=== PATIENT | male | born 1980 | race Caucasian/White ===

== ENCOUNTER 2018-06-26 12:45 | Emergency (ER) | payer MEDICAID ==
[~2018-06-26] VITALS: Ht 647.4 cm; Wt 70.5 kg
[2018-06-26] MEDS ORDERED: ALBU8.5H8 IH (13:33)
[2018-06-26 13:47] VITALS: BP 137/99
== END 2018-06-26 13:48 | disposition home or self-care (01) ==
LOC: ER 12:46
DX: R09.1 Pleurisy (principal); J40 Bronchitis, not specified as acute or chronic; R07.9 Chest pain, unspecified; Z79.899 Other long term (current) drug therapy
CPT/HCPCS: 71045; 93005; 99284

== ENCOUNTER 2020-06-10 01:27 | Emergency (ER) | payer MEDICAID ==
[~2020-06-10] VITALS: Ht 182.9 cm; Wt 72.0 kg
[~2020-06-10 01:27] MED LIST: ALBU8.5H8 IH
[2020-06-10] MEDS ORDERED: morphine 4 MG/ML inj SYRINge IV PRN (02:00)
[2020-06-10] MEDS ORDERED: normal saline 1000ML IV soln IVB ONE (02:00)
[2020-06-10] MEDS ORDERED: ondansetron/PF 4mg/2ml inj IV ONE (02:00)
[2020-06-10] MEDS ORDERED: LORazepam 2 mg/ml vial IV ONE (02:00)
[2020-06-10 02:24] LABS: BASOPHILS # (AUTO) 0.1 X10'3 (0-0.2); BASOPHILS % (AUTO) 0.4 % (0-1); EOSINOPHILS # (AUTO) 0.1 X10'3 (0-0.9); EOSINOPHILS % (AUTO) 0.9 % (0-6); HEMATOCRIT 40.9 % (42.0-52.0); HEMOGLOBIN 14.1 g/dl (14.0-17.9); LYMPHOCYTES # (AUTO) 1.2 X10'3 (1.1-4.8); LYMPHOCYTES % (AUTO) 7.7 % (21-51); MEAN CORPUSCULAR HEMOGLOBIN 34.2 PG (27.0-31.0); MEAN CORPUSCULAR HGB CONC 34.5 g/dL (33.0-36.5); MEAN CORPUSCULAR VOLUME 99.2 FL (78-98); MEAN PLATELET VOLUME 7.3 FL (7.4-10.4); MONOCYTES # (AUTO) 1.3 X10'3 (0-0.9); MONOCYTES % (AUTO) 8.5 % (2-12); NEUTROPHILS # (AUTO) 12.7 X10'3 (1.8-7.7); NEUTROPHILS % (AUTO) 82.5 % (42-75); PLATELET COUNT 221 X10'3 (140-440); RED BLOOD COUNT 4.12 X10'6 (4.70-6.10); RED CELL DISTRIBUTION WIDTH 12.6 % (11.5-14.5); WHITE BLOOD COUNT 15.4 X10'3 (4.5-11.0)
[2020-06-10 02:41] LABS: ALANINE AMINOTRANSFERASE 52 U/L (12-78); ALBUMIN 3.4 G/DL (3.4-5.0); ALBUMIN/GLOBULIN RATIO 0.9 (1.1-1.5); ALKALINE PHOSPHATASE 104 IU/L (46-116); ANION GAP 8 (8-16); ASPARTATE AMINO TRANSFERASE 43 U/L (10-37); BILIRUBIN,TOTAL 0.3 MG/DL (0.1-1.0); BLOOD UREA NITROGEN 8 MG/DL (7-18); BUN/CREATININE RATIO 8.1 (5.4-32.0); CALCIUM 8.5 MG/DL (8.5-10.1); CHLORIDE 101 MMOL/L (99-107); CREATININE 0.99 MG/DL (0.60-1.10); GLUCOSE 123 MG/DL (70-104); LIPASE 281 U/L (73-393); POTASSIUM 3.2 MMOL/L (3.5-5.1); SODIUM 138 MMOL/L (135-145); TOTAL CARBON DIOXIDE 28.8 MMOL/L (24-32); TOTAL PROTEIN 7.2 G/DL (6.4-8.2); eGFR 85 ML/MIN
[2020-06-10] MEDS ORDERED: potassium Cl 20 mEq SR tablet PO STA (02:58)
[2020-06-10 03:07] VITALS: BP 147/90
== END 2020-06-10 03:38 | disposition home or self-care (01) ==
LOC: ER 01:28
DX: R59.0 Localized enlarged lymph nodes (principal); E87.6 Hypokalemia; R10.31 Right lower quadrant pain; Z72.89 Other problems related to lifestyle; Z88.5 Allergy status to narcotic agent
CPT/HCPCS: 36415; 74176; 80053; 83690; 85025; 96374; 96375; 99284; J2060; J2270; J2405; J7030

== ENCOUNTER 2020-06-13 10:38 | Emergency (ER) | payer MEDICAID ==
[~2020-06-13] VITALS: Ht 180.3 cm; Wt 72.7 kg
[2020-06-13 11:15] VITALS: BP 137/89
[2020-06-13] MEDS ORDERED: DOXYCYCLINE 100MG CAPSULE PO STA (11:48)
[2020-06-13] MEDS ORDERED: ketorolac trometh inj. 60 MG/2 ML VIAL IM ONE (11:50)
[2020-06-13] MEDS ORDERED: ondansetron 4mg rapidly disintigrating tab PO ONE (11:50)
[2020-06-13] MEDS ORDERED: TETanus/Pertussis (Acell)/Diphther VAC/PF (Tdap-Adult) 0.5ml syringe IMVAC ONE (11:50)
[2020-06-13] MEDS ORDERED: ceFAZolin 1gm IM kit IM ONE (11:50)
[2020-06-13] MEDS ORDERED: ONDA8TAB6 PO (11:52)
[2020-06-13] MEDS ORDERED: DOXY100C76 PO (11:52)
[2020-06-13] MEDS ORDERED: CEPH250T PO (11:52)
[2020-06-13] MEDS ORDERED: ACYC-202 PO (13:10)
== END 2020-06-13 13:27 | disposition home or self-care (01) ==
LOC: ER 10:38
DX: L03.314 Cellulitis of groin (principal); Z88.5 Allergy status to narcotic agent; Z79.2 Long term (current) use of antibiotics; Z79.899 Other long term (current) drug therapy
CPT/HCPCS: 90471; 90715; 96372; 99284; J0690; J1885

== ENCOUNTER 2020-06-15 14:11 | Inpatient (IN) | payer MEDICAID ==
[~2020-06-15] VITALS: Ht 185.4 cm; Wt 50.0 kg
[~2020-06-15 14:11] MED LIST changes: +ACYC-202 PO; +CEPH250T PO; +DOXY100C76 PO; +ONDA8TAB6 PO
[2020-06-15 15:12] LABS: BASOPHILS # (AUTO) 0.1 X10'3 (0-0.2); BASOPHILS % (AUTO) 0.4 % (0-1); EOSINOPHILS # (AUTO) 0.1 X10'3 (0-0.9); EOSINOPHILS % (AUTO) 0.6 % (0-6); HEMATOCRIT 38.6 % (42.0-52.0); HEMOGLOBIN 13.3 g/dl (14.0-17.9); LYMPHOCYTES # (AUTO) 1.2 X10'3 (1.1-4.8); LYMPHOCYTES % (AUTO) 6.2 % (21-51); MEAN CORPUSCULAR HEMOGLOBIN 33.7 PG (27.0-31.0); MEAN CORPUSCULAR HGB CONC 34.3 g/dL (33.0-36.5); MEAN CORPUSCULAR VOLUME 98.1 FL (78-98); MEAN PLATELET VOLUME 7.8 FL (7.4-10.4); MONOCYTES # (AUTO) 1.5 X10'3 (0-0.9); NEUTROPHILS % (AUTO) 84.8 % (42-75); PLATELET COUNT 407 X10'3 (140-440); RED BLOOD COUNT 3.94 X10'6 (4.70-6.10); RED CELL DISTRIBUTION WIDTH 12.5 % (11.5-14.5); WHITE BLOOD COUNT 18.9 X10'3 (4.5-11.0)
[2020-06-15 15:25] LABS: ALANINE AMINOTRANSFERASE 103 U/L (12-78); ALBUMIN 2.4 G/DL (3.4-5.0); ALBUMIN/GLOBULIN RATIO 0.5 (1.1-1.5); ALKALINE PHOSPHATASE 142 IU/L (46-116); ANION GAP 6 (8-16); ASPARTATE AMINO TRANSFERASE 61 U/L (10-37); BILIRUBIN,TOTAL 0.4 MG/DL (0.1-1.0); BLOOD UREA NITROGEN 12 MG/DL (7-18); CALCIUM 8.9 MG/DL (8.5-10.1); CHLORIDE 99 MMOL/L (99-107); GLUCOSE 109 MG/DL (70-104); MAGNESIUM 2.1 MG/DL (1.5-2.4); POTASSIUM 3.4 MMOL/L (3.5-5.1); SODIUM 136 MMOL/L (135-145); TOTAL CARBON DIOXIDE 31.1 MMOL/L (24-32); TOTAL PROTEIN 7.5 G/DL (6.4-8.2); eGFR 68 ML/MIN
[2020-06-15 15:27] LABS: CLARITY,URINE CLEAR (Clear); COLOR,URINE YELLOW (Yellow); GLUCOSE, URINE NEGATIVE (Neg); KETONES,URINE 15 mg/dl (Neg); LEUKOCYTE ESTERASE ,URINE NEGATIVE (Neg); NITRITES, URINE NEGATIVE (Neg); OCCULT BLOOD,URINE NEGATIVE (Neg); PH,URINE 5.5 (4.8-8.0); PROTEIN,URINE 30 mg/dl (Neg)
[2020-06-15 15:28] LABS: UA COLLECTION TYPE CLN CATCH MIDSTREAM
[2020-06-15] MEDS ORDERED: penicillin G benzathine 1.2 million unit/2ml syringe IM ONE ×2 (15:35)
[2020-06-15 15:37] LABS: BACTERIA,URINE 1+ /HPF (Neg); MUCUS STRANDS MODERATE /LPF (Neg); RBC,URINE 0-2 /HPF (0-2); SQUAMOUS EPITHELIAL CELL,UR FEW /LPF (FEW); WBC,URINE 0-4 /HPF (0-4)
[2020-06-15] MEDS ORDERED: iohexol 300mg/ml 100ml inj. ONE (17:14)
[2020-06-15] MEDS ORDERED: CefTRIAXone/D5W-Rocephin 1gm 50 ML IV ONE (18:05)
[2020-06-15] MEDS ORDERED: DOXYCYCLINE 100MG CAPSULE PO STA (18:05)
[2020-06-15] MEDS ORDERED: vancomycin/NS 1 GM ADD-VANTAGE 250 ML IV ONE (18:10)
[2020-06-15] MEDS ORDERED: ACYC-202 PO (18:30)
[2020-06-15 18:55] LABS: PLATELET ESTIMATE NORMAL; TOTAL CELLS COUNTED 100
[2020-06-15] MEDS ORDERED: HYDROcodone/acetaminophen 5mg/325mg tablet PO PRN (20:45)
[2020-06-15] MEDS ORDERED: mag hydrox/Alum hydrox/simeth 30ml oral suspension PO PRN (20:45)
[2020-06-15] MEDS ORDERED: magnesium 4gm in 100ml NS 100 ML IV PRN (20:45)
[2020-06-15] MEDS ORDERED: potassium Cl 20 mEq SR tablet PO PRN ×2 (20:45)
[2020-06-15] MEDS ORDERED: ipratropium/albuterol 3ml nebule NEB PRN (20:45)
[2020-06-15] MEDS ORDERED: magnesium hydroxide 30ml (MOM) UD suspension PO PRN (20:45)
[2020-06-15] MEDS ORDERED: acetaminophen 325mg tablet PO PRN ×2 (20:45)
[2020-06-15] MEDS ORDERED: potassium CL 10mEq/100ml bag 100 ML IV PRN ×2 (20:45)
[2020-06-15] MEDS ORDERED: magnesium 2GM in 50ml NS 50 ML IV PRN (20:45)
[2020-06-15] MEDS ORDERED: ondansetron/PF 4mg/2ml inj IV PRN (20:45)
[2020-06-15] MEDS ORDERED: VANCOMYCIN 750MG IV in NS 250 ML IV SCH (21:00)
[2020-06-15] MEDS: clindamycin 600mg/D5W 50ml 50 ML IV SCH (21:21)
[2020-06-15] MEDS: HYDROcodone/acetaminophen 10/325mg tab PO PRN (21:21)
--- NOTE | 2020-06-15 22:45 | NUR ---
Received report from Georgi CALDWELL in the ER, I had the opportunity to ask questions.
[2020-06-15 23:00] VITALS: BP 144/96
--- NOTE | 2020-06-15 23:00 | NUR ---
Patient arrived on unit via a gurney and transferred to room by ambulation. He is AOx4, vitals were taken, Heart rate 70, resp 22, 97%, Pain 0, BP 144/96. Two RN skin check was performed and MRSA culture obtained. Pictures of right groin abscess taken in the ER and consultation requested with wound care. Patient is stable in room with no signs of distress.
[2020-06-15] MEDS: normal saline 1000ml 1,000 ML IV SCH (23:45)
[2020-06-16] VITALS (17 sets, daily range): BP systolic 123–150; BP diastolic 80–96
[2020-06-16] MEDS: clindamycin 600mg/D5W 50ml 50 ML IV SCH ×4 (01:33→22:17)
[2020-06-16] MEDS: HYDROcodone/acetaminophen 10/325mg tab PO PRN ×3 (03:38→23:53)
[2020-06-16 05:01] LABS: BASOPHILS # (AUTO) 0.1 X10'3 (0-0.2); BASOPHILS % (AUTO) 0.4 % (0-1); EOSINOPHILS # (AUTO) 0.2 X10'3 (0-0.9); EOSINOPHILS % (AUTO) 1.6 % (0-6); HEMATOCRIT 35.7 % (42.0-52.0); HEMOGLOBIN 12.1 g/dl (14.0-17.9); LYMPHOCYTES # (AUTO) 1.7 X10'3 (1.1-4.8); LYMPHOCYTES % (AUTO) 12.6 % (21-51); MEAN CORPUSCULAR HGB CONC 33.9 g/dL (33.0-36.5); MEAN CORPUSCULAR VOLUME 100.2 FL (78-98); MEAN PLATELET VOLUME 7.7 FL (7.4-10.4); MONOCYTES # (AUTO) 1.5 X10'3 (0-0.9); MONOCYTES % (AUTO) 10.7 % (2-12); NEUTROPHILS # (AUTO) 10.3 X10'3 (1.8-7.7); NEUTROPHILS % (AUTO) 74.7 % (42-75); PLATELET COUNT 371 X10'3 (140-440); RED BLOOD COUNT 3.56 X10'6 (4.70-6.10); RED CELL DISTRIBUTION WIDTH 12.8 % (11.5-14.5); WHITE BLOOD COUNT 13.8 X10'3 (4.5-11.0)
[2020-06-16 05:07] LABS: ALANINE AMINOTRANSFERASE 84 U/L (12-78); ALBUMIN 2.2 G/DL (3.4-5.0); ALBUMIN/GLOBULIN RATIO 0.5 (1.1-1.5); ALKALINE PHOSPHATASE 123 IU/L (46-116); ANION GAP 6 (8-16); ASPARTATE AMINO TRANSFERASE 41 U/L (10-37); BILIRUBIN,TOTAL 0.4 MG/DL (0.1-1.0); BLOOD UREA NITROGEN 7 MG/DL (7-18); BUN/CREATININE RATIO 8.5 (5.4-32.0); CALCIUM 8.6 MG/DL (8.5-10.1); CHLORIDE 102 MMOL/L (99-107); CREATININE 0.82 MG/DL (0.60-1.10); GLUCOSE 90 MG/DL (70-104); POTASSIUM 3.7 MMOL/L (3.5-5.1); SODIUM 136 MMOL/L (135-145); TOTAL CARBON DIOXIDE 28.3 MMOL/L (24-32); TOTAL PROTEIN 6.6 G/DL (6.4-8.2); eGFR > 90 ML/MIN
--- NOTE | 2020-06-16 06:33 | NUR ---
Problems reprioritized. Patient report given, questions answered & plan of care reviewed with Kaye CALDWELL.
--- NOTE | 2020-06-16 07:03 | NUR ---
Patient in room PCU 3024. I have received report from PAULETTE Crisostomo and had the opportunity to ask questions and assume patient care.
[2020-06-16] MEDS: normal saline 1000ml 1,000 ML IV SCH ×2 (08:32→22:18)
[2020-06-16] MEDS: K and/or MAG REPLACEMENT MC SCH ×2 (08:58→20:00)
[2020-06-16] MEDS: VANCOMYCIN 750MG IV in NS 250 ML IV SCH ×2 (09:11→23:48)
--- NOTE | 2020-06-16 10:53 | NUR ---
PAGER ID: [phone] MESSAGE: [id number]: David RICHARD pt resting HR 100-110s, when ambulating 140s-150s. Asymptomatic. - kaye [phone] Addendum: 06/16/20 at 1100 by Kaye Bryan RN VOID, incorrect pt
--- NOTE | 2020-06-16 13:13 | NUR ---
Pt with a low BMI of 14.5 using scaled weight of 50 kg (110 lbs). Pt seen at bedside states current wt is actually 160 lbs resulting in an appropriate BMI of 21. Pt endorses a good appetite and states he doesn't care for the food. Pt with no specific food preferences however RD obtained meal order for lunch tomorrow and d/w dietary. Pt denies food allergies, difficulty chewing/swallowing, or constipation/diarrhea. [facility] contact information provided. Will remain available. Addendum: 06/16/20 at [address] Amended: Links added.
--- NOTE | 2020-06-16 15:19 | NUR ---
WOUND INFECTION EDUCATION PROVIDED BY WOUND CARE 1. Patient instructed to call their primary doctor, or go the ED immediately if any of the following symptoms occur: * Increased pain in wound * Increase in drainage from the wound * Redness in the skin surrounding the wound * Warmth in the skin surrounding the wound * Bleeding from the wound * Temperature of 101 or greater 2. If any of these occur while in the hospital tell a nurse immediately. Addendum: 06/16/20 at 1520 by Norberto Domingo RN Amended: Links added.
[2020-06-16 17:54] LABS: PARTIAL THROMBOPLASTIN TIME 33 SECONDS (22-32)
[2020-06-16] MEDS ORDERED: dextrose 50%-water 50ml dispensing syringe IV PRN ×2 (18:35)
[2020-06-16] MEDS ORDERED: dextrose ORAL solution 15 GM/59 ML bottle PO PRN ×2 (18:35)
[2020-06-16] MEDS ORDERED: glucagon, human recombinant 1mg kit SUBCUT PRN (18:35)
[2020-06-16] MEDS ORDERED: insulin Lispro (HumaLOG) vial - multi-dose SQ SCH (18:35)
[2020-06-16] MEDS ORDERED: MESSAGE TO PHARMACY PO ONE (18:35)
[2020-06-16] MEDS ORDERED: sevoflurane 250ml liquid IH ONE (18:37)
[2020-06-16] MEDS ORDERED: fentaNYL/PF 50MCG/1 ML 2ML syringe ONE ×3 (18:41→19:51)
--- NOTE | 2020-06-16 18:43 | NUR ---
Problems reprioritized. Patient report given, questions answered & plan of care reviewed with PAULETTE Crisostomo.
[2020-06-16] MEDS ORDERED: midazolam 2 mg/2 ml injection ONE (18:52)
[2020-06-16] MEDS ORDERED: ringers solution, lacted 1,000 ML IV SCH (19:03)
[2020-06-16] MEDS ORDERED: ondansetron/PF 4mg/2ml inj IV PRN (19:05)
[2020-06-16] MEDS ORDERED: morphine 2 MG/ML inj. syringe IV PRN (19:05)
[2020-06-16] MEDS ORDERED: meperidine/PF 25mg/ml syringe IV PRN ×3 (19:05)
[2020-06-16] MEDS ORDERED: proCHLORperazine 10 MG/2 ml inj IV PRN (19:05)
[2020-06-16] MEDS ORDERED: propofol inj 20 ML IV ONE (19:20)
[2020-06-16] MEDS ORDERED: succinylcholine 20mg/ml inj IV ONE (19:20)
[2020-06-16] MEDS ORDERED: dexamethasone sod phosphate 4mg/ml inj. ONE (19:20)
[2020-06-16] MEDS ORDERED: LIDOcaine 2% (20mg/ml) 5ml vial ONE (19:20)
[2020-06-16] MEDS ORDERED: ondansetron/PF 4mg/2ml inj ONE (19:20)
--- NOTE | 2020-06-16 19:53 | NUR ---
Received from OR via surgical bed, accompanied by Anesthesiologist Kemal and report given by Anesthesiolgist. Wound vac in place at low continuous 125, VS WNL and mask 10L. SCDs on, no gabriel cath. 20G right forearm 100cc/hr. Pedal pulses palpable.
--- NOTE | 2020-06-16 20:20 | NUR ---
Recovery called with update on patient. He had an IND to the R groin with a wvac placed continuous 125, estimated blood loss of 200ml. General anesthetic was used, pt vitals 157/85, 96%, HR 82, LR at 100ml/hr.
[2020-06-16] MEDS: morphine 4 MG/ML inj SYRINge IV PRN ×2 (20:23→20:36)
--- NOTE | 2020-06-16 20:35 | NUR ---
Patient in room U 3024. I have received report from Kaye CALDWELL and had the opportunity to ask questions Patient is in surgery for right groin abscess.. Addendum: 06/16/20 at 2036 by Andressa Rousseau RN Report at [id number]
--- NOTE | 2020-06-16 20:52 | NUR ---
Report called to receiving nurse. Transferred via surgical bed to 3024B. Belongings remained in patient room. Special Issues communicated to receiving nurse. BLL call light within reach, pt alert and responsive, wound vac remains with good seal. Chart at bedside.
[2020-06-16] MEDS ORDERED: insulin glargine (Lantus) pen - multi-dose SQ SCH (21:00)
[2020-06-16] MEDS: lactobacillus rhamnosus 10,000 MMU CELLS/CAPSULE PO SCH (22:16)
[2020-06-17] VITALS: BP 131/79
[2020-06-17] MEDS: clindamycin 600mg/D5W 50ml 50 ML IV SCH ×4 (01:28→20:57)
[2020-06-17 02:00] VITALS: BP 115/73
[2020-06-17] MEDS: normal saline 1000ml 1,000 ML IV SCH (02:41)
--- NOTE | 2020-06-17 06:24 | NUR ---
Problems reprioritized. Patient report given, questions answered & plan of care reviewed with Kaye CALDWELL.
--- NOTE | 2020-06-17 06:26 | NUR ---
Patient in room PCU 3024. I have received report from PAULETTE Restrepo and had the opportunity to ask questions and assume patient care.
[2020-06-17] MEDS: VANCOMYCIN 750MG IV in NS 250 ML IV SCH ×2 (06:44→19:24)
[2020-06-17 07:00] VITALS: BP 123/88
[2020-06-17] MEDS: HYDROcodone/acetaminophen 10/325mg tab PO PRN ×3 (07:50→17:40)
[2020-06-17] MEDS: lactobacillus rhamnosus 10,000 MMU CELLS/CAPSULE PO SCH ×2 (07:50→19:23)
[2020-06-17] MEDS: K and/or MAG REPLACEMENT MC SCH ×2 (08:00→19:06)
[2020-06-17] MEDS ORDERED: VANCOMYCIN LEVEL IV ONE (08:30)
[2020-06-17 08:36] LABS: BASOPHILS % (AUTO) 0.2 % (0-1); EOSINOPHILS % (AUTO) 0.2 % (0-6); HEMATOCRIT 36.4 % (42.0-52.0); HEMOGLOBIN 12.5 g/dl (14.0-17.9); LYMPHOCYTES # (AUTO) 1.2 X10'3 (1.1-4.8); LYMPHOCYTES % (AUTO) 8.3 % (21-51); MEAN CORPUSCULAR HEMOGLOBIN 33.9 PG (27.0-31.0); MEAN CORPUSCULAR HGB CONC 34.3 g/dL (33.0-36.5); MEAN CORPUSCULAR VOLUME 98.9 FL (78-98); MEAN PLATELET VOLUME 7.4 FL (7.4-10.4); MONOCYTES # (AUTO) 0.9 X10'3 (0-0.9); MONOCYTES % (AUTO) 6.1 % (2-12); NEUTROPHILS # (AUTO) 12.7 X10'3 (1.8-7.7); NEUTROPHILS % (AUTO) 85.2 % (42-75); PLATELET COUNT 485 X10'3 (140-440); RED BLOOD COUNT 3.68 X10'6 (4.70-6.10); RED CELL DISTRIBUTION WIDTH 12.5 % (11.5-14.5); WHITE BLOOD COUNT 14.9 X10'3 (4.5-11.0)
[2020-06-17 08:55] LABS: ALANINE AMINOTRANSFERASE 63 U/L (12-78); ALBUMIN 2.1 G/DL (3.4-5.0); ALBUMIN/GLOBULIN RATIO 0.5 (1.1-1.5); ALKALINE PHOSPHATASE 109 IU/L (46-116); ANION GAP 7 (8-16); ASPARTATE AMINO TRANSFERASE 24 U/L (10-37); BILIRUBIN,TOTAL 0.3 MG/DL (0.1-1.0); BLOOD UREA NITROGEN 5 MG/DL (7-18); BUN/CREATININE RATIO 7.1 (5.4-32.0); CALCIUM 8.2 MG/DL (8.5-10.1); CHLORIDE 101 MMOL/L (99-107); GLUCOSE 97 MG/DL (70-104); POTASSIUM 4.1 MMOL/L (3.5-5.1); SODIUM 138 MMOL/L (135-145); TOTAL CARBON DIOXIDE 29.9 MMOL/L (24-32); TOTAL PROTEIN 6.6 G/DL (6.4-8.2); eGFR > 90 ML/MIN
[2020-06-17 11:00] VITALS: BP_SYST 132; BP_SYST 134; BP_DIAS 84; BP_DIAS 87
--- NOTE | 2020-06-17 13:10 | NUR ---
PAGER ID: [phone] MESSAGE: [id number]: David Lerma: Pt feeling anxious, may I have a low dose of Ativan? Kindly advise -Kaye [phone]
[2020-06-17] MEDS: LORazepam 0.5 MG tablet PO PRN ×2 (14:10→20:48)
--- NOTE | 2020-06-17 17:12 | NUR ---
Problems reprioritized. Patient report given, questions answered & plan of care reviewed with PAULETTE Soto.
--- NOTE | 2020-06-17 17:18 | NUR ---
Pt wheeled to Surgical floor
[2020-06-17 17:30] VITALS: BP 134/79
--- NOTE | 2020-06-17 18:14 | NUR ---
Gave report to Nilsa Harry. Pt. has no needs at this time and is comfortable in his room. Wound vac output charted.
[2020-06-17 18:15] VITALS: BP 144/89
--- NOTE | 2020-06-17 19:02 | NUR ---
Patient in room [facility] 345. I have received report from PAULETTE Soto and had the opportunity to ask questions and assume patient care.
--- NOTE | 2020-06-17 19:54 | NUR ---
Paged Dr. Nielsen. PAGER ID: [phone] MESSAGE: David Blevins R thigh cellulitis. Smokes 2 cigarettes/day. Would like nicotine patch or gum. Nilsa Surg [id number]
[2020-06-17] MEDS: nicotine 14mg patch - 24hr TD SCH (20:51)
[2020-06-18 00:36] VITALS: BP 131/83
[2020-06-18] MEDS: clindamycin 600mg/D5W 50ml 50 ML IV SCH ×2 (02:05→07:32)
[2020-06-18] MEDS: HYDROcodone/acetaminophen 10/325mg tab PO PRN ×4 (02:05→23:25)
[2020-06-18 05:20] LABS: BASOPHILS % (AUTO) 0.5 % (0-1); EOSINOPHILS # (AUTO) 0.1 X10'3 (0-0.9); EOSINOPHILS % (AUTO) 1.2 % (0-6); HEMATOCRIT 33.4 % (42.0-52.0); HEMOGLOBIN 11.5 g/dl (14.0-17.9); LYMPHOCYTES # (AUTO) 1.2 X10'3 (1.1-4.8); LYMPHOCYTES % (AUTO) 13.2 % (21-51); MEAN CORPUSCULAR HEMOGLOBIN 33.7 PG (27.0-31.0); MEAN CORPUSCULAR HGB CONC 34.5 g/dL (33.0-36.5); MEAN CORPUSCULAR VOLUME 97.9 FL (78-98); MEAN PLATELET VOLUME 7.4 FL (7.4-10.4); MONOCYTES % (AUTO) 10.8 % (2-12); NEUTROPHILS # (AUTO) 6.7 X10'3 (1.8-7.7); NEUTROPHILS % (AUTO) 74.3 % (42-75); PLATELET COUNT 422 X10'3 (140-440); RED BLOOD COUNT 3.41 X10'6 (4.70-6.10); RED CELL DISTRIBUTION WIDTH 12.6 % (11.5-14.5)
[2020-06-18 05:36] LABS: ALANINE AMINOTRANSFERASE 56 U/L (12-78); ALBUMIN 2.1 G/DL (3.4-5.0); ALBUMIN/GLOBULIN RATIO 0.5 (1.1-1.5); ALKALINE PHOSPHATASE 105 IU/L (46-116); ANION GAP 6 (8-16); ASPARTATE AMINO TRANSFERASE 36 U/L (10-37); BILIRUBIN,TOTAL 0.3 MG/DL (0.1-1.0); BLOOD UREA NITROGEN 5 MG/DL (7-18); CALCIUM 8.1 MG/DL (8.5-10.1); CHLORIDE 103 MMOL/L (99-107); CREATININE 0.71 MG/DL (0.60-1.10); GLUCOSE 98 MG/DL (70-104); POTASSIUM 3.4 MMOL/L (3.5-5.1); SODIUM 137 MMOL/L (135-145); eGFR > 90 ML/MIN
--- NOTE | 2020-06-18 06:06 | NUR ---
I have received report from Nilsa CALDWELL and had the opportunity to ask questions and assume patient care.
--- NOTE | 2020-06-18 06:41 | NUR ---
Problems reprioritized. Patient report given, questions answered & plan of care reviewed with PAULETTE Sánchez.
[2020-06-18] MEDS: K and/or MAG REPLACEMENT MC SCH ×2 (07:27→20:00)
[2020-06-18] MEDS: lactobacillus rhamnosus 10,000 MMU CELLS/CAPSULE PO SCH ×2 (07:31→20:32)
[2020-06-18] MEDS: nicotine 14mg patch - 24hr TD SCH (07:32)
[2020-06-18] MEDS: VANCOMYCIN 750MG IV in NS 250 ML IV SCH (07:32)
[2020-06-18 07:42] VITALS: BP 137/87
--- NOTE | 2020-06-18 10:49 | NUR ---
Message sent to pharmacy: Need Ampicillin dose. Please and thank you. Princess [phone]
[2020-06-18 11:00] VITALS: BP 118/76
[2020-06-18] MEDS: ampicillin inj 2 GM in normal saline 100ml IV soln 100 ML IV SCH ×3 (11:22→20:32)
--- NOTE | 2020-06-18 18:16 | NUR ---
Problems reprioritized. Patient report given, questions answered & plan of care reviewed with Kadie CALDWELL.
[2020-06-18] MEDS ORDERED: VANCOMYCIN LEVEL IV ONE (18:30)
--- NOTE | 2020-06-18 18:30 | NUR ---
Patient in room [facility] 345. I have received report from IVET and had the opportunity to ask questions and assume patient care.
[2020-06-18 19:44] VITALS: BP 139/100
[2020-06-18 23:00] VITALS: BP 142/84
[2020-06-18] MEDS: LORazepam 0.5 MG tablet PO PRN (23:24)
--- NOTE | 2020-06-18 23:29 | NUR ---
Patient in room [facility] 345. I have received report from PAULETTE Jacinto and had the opportunity to ask questions and assume patient care.
--- NOTE | 2020-06-18 23:30 | NUR ---
Problems reprioritized. Patient report given, questions answered & plan of care reviewed with
[2020-06-19] VITALS: BP 142/84
[2020-06-19] MEDS: ampicillin inj 2 GM in normal saline 100ml IV soln 100 ML IV SCH ×2 (01:24→07:59)
[2020-06-19 05:15] LABS: BASOPHILS # (AUTO) 0.1 X10'3 (0-0.2); BASOPHILS % (AUTO) 1.3 % (0-1); EOSINOPHILS # (AUTO) 0.2 X10'3 (0-0.9); EOSINOPHILS % (AUTO) 2.3 % (0-6); HEMATOCRIT 35.9 % (42.0-52.0); HEMOGLOBIN 12.4 g/dl (14.0-17.9); LYMPHOCYTES # (AUTO) 1.7 X10'3 (1.1-4.8); LYMPHOCYTES % (AUTO) 22.2 % (21-51); MEAN CORPUSCULAR HEMOGLOBIN 33.9 PG (27.0-31.0); MEAN CORPUSCULAR HGB CONC 34.5 g/dL (33.0-36.5); MEAN CORPUSCULAR VOLUME 98.3 FL (78-98); MEAN PLATELET VOLUME 7.2 FL (7.4-10.4); MONOCYTES % (AUTO) 13.4 % (2-12); NEUTROPHILS # (AUTO) 4.5 X10'3 (1.8-7.7); NEUTROPHILS % (AUTO) 60.8 % (42-75); PLATELET COUNT 533 X10'3 (140-440); RED BLOOD COUNT 3.66 X10'6 (4.70-6.10); RED CELL DISTRIBUTION WIDTH 12.5 % (11.5-14.5); WHITE BLOOD COUNT 7.5 X10'3 (4.5-11.0)
[2020-06-19 05:33] LABS: ALANINE AMINOTRANSFERASE 65 U/L (12-78); ALBUMIN 2.5 G/DL (3.4-5.0); ALBUMIN/GLOBULIN RATIO 0.6 (1.1-1.5); ALKALINE PHOSPHATASE 103 IU/L (46-116); ANION GAP 4 (8-16); ASPARTATE AMINO TRANSFERASE 42 U/L (10-37); BILIRUBIN,TOTAL 0.2 MG/DL (0.1-1.0); BLOOD UREA NITROGEN 3 MG/DL (7-18); BUN/CREATININE RATIO 3.6 (5.4-32.0); CALCIUM 8.9 MG/DL (8.5-10.1); CHLORIDE 103 MMOL/L (99-107); CREATININE 0.84 MG/DL (0.60-1.10); GLUCOSE 85 MG/DL (70-104); MAGNESIUM 2.4 MG/DL (1.5-2.4); SODIUM 137 MMOL/L (135-145); TOTAL CARBON DIOXIDE 30.5 MMOL/L (24-32); TOTAL PROTEIN 6.8 G/DL (6.4-8.2); eGFR > 90 ML/MIN
--- NOTE | 2020-06-19 06:08 | NUR ---
Problems reprioritized. Patient report given, questions answered & plan of care reviewed with PAULETTE Wise.
[2020-06-19 07:00] VITALS: BP 125/81
[2020-06-19 07:15] LABS: PLATELET ESTIMATE INCREASED; TOTAL CELLS COUNTED 100
[2020-06-19] MEDS: K and/or MAG REPLACEMENT MC SCH (07:55)
[2020-06-19] MEDS: nicotine 14mg patch - 24hr TD SCH (07:59)
[2020-06-19] MEDS: lactobacillus rhamnosus 10,000 MMU CELLS/CAPSULE PO SCH (07:59)
[2020-06-19] MEDS ORDERED: AMOX-580 PO (09:31)
[2020-06-19] MEDS ORDERED: HYDR-4353 PO (09:31)
--- NOTE | 2020-06-19 11:14 | NUR ---
PT DISCHARGED IN STABLE CONDITION. LEFT FACILITY IN PRIVATE VEHICLE WITH FRIEND. IV DC CANULA INTACT. ALL BELONGINGS IN HAND. PT DISCHARGED WITH HOME WOUND VAC, FU APPT MADE, PT AWARE. FOLLOW UP INSTRUCTIONS GIVEN, ALL QUESTIONS ANSWERED. Addendum: 06/19/20 at 1116 by Rebecca Mills RN Amended: Links added.
--- NOTE | 2020-06-19 12:36 | NUR ---
WOUND VAC EDUCATION PROVIDED BY WOUND CARE 1. Patient instructed to call the Wound Center or their Home Health Agency immediately if: * They notice a change in the color or amount of the fluid in the canister. * Their wound looks more red than usual or has a foul smell. * The skin around their wound looks reddened or irritated. * The dressing feels loose or appears to be loose. * They experience any increase or changes in their pain. * The alarm will not turn off. 2. Patient instructed that they should not be disconnected from suction for more than 2 hours at a time. * If they are not able to get the suction back on, they need to remove the dressing and take all of the foam out of the wound. * Then moisten sterile gauze with normal saline and place on/in the wound. * Change the dressing once a day until arrangements have been made to replace the wound vac dressing. 3. Patient instructed to turn the wound vac machine OFF and call 911 or go to the ED immediately if their canister fills rapidly with blood. 4. If any of these occur while in the hospital tell a nurse immediately. WOUND INFECTION EDUCATION PROVIDED BY WOUND CARE 1. Patient instructed to call their primary doctor, or go the ED immediately if any of the following symptoms occur: * Increased pain in wound * Increase in drainage from the wound * Redness in the skin surrounding the wound * Warmth in the skin surrounding the wound * Bleeding from the wound * Temperature of 101 or greater 2. If any of these occur while in the hospital tell a nurse immediately. Addendum: 06/19/20 at 1237 by Norberto Domingo RN Amended: Links added.
== END 2020-06-19 11:00 | disposition home health service (06) | DRG 383 ==
LOC: ER 14:12 → ED HOLD 20:41 → PCU 3S 23:02 → SUR 3N 06-17 17:21
PROVIDERS: ADMIT Family Medicine; ATTEND Family Medicine
PROC: BW211ZZ Computerized Tomography (CT Scan) of Abdomen and Pelvis using Low Osmolar Contrast (ICD-10-PCS; 2020-06-15)
PROC: 0JBL0ZZ Excision of Right Upper Leg Subcutaneous Tissue and Fascia, Open Approach (ICD-10-PCS; principal; 2020-06-16 18:37)
DX: L03.115 Cellulitis of right lower limb (principal); F17.210 Nicotine dependence, cigarettes, uncomplicated; D72.829 Elevated white blood cell count, unspecified; E87.6 Hypokalemia; N17.9 Acute kidney failure, unspecified; R74.0 Nonspecific elevation of levels of transaminase and lactic acid dehydrogenase [LDH]; I96 Gangrene, not elsewhere classified; M72.6 Necrotizing fasciitis; B00.9 Herpesviral infection, unspecified; Z88.6 Allergy status to analgesic agent; Z82.49 Family history of ischemic heart disease and other diseases of the circulatory system
CPT/HCPCS: 36415; 71045; 72193; 80053; 81001; 83605; 83735; 84145; 85025; 85610; 85730; 86592; 86885; 86900; 86901; 87040; 87070; 87075; 87077; 87081; 87186; 87491; 93005; 94760; 96365; 96367; 96372; 97116; 97161; 99285; A4618; A6550; A7000; G0378; J0290; J0330; J0561; J0696; J1100; J1815; J2001; J2175; J2250; J2270; J2405; J2704; J3010; J3370; J3490; J7030; J7050; J7120; Q9967

== ENCOUNTER 2020-07-10 10:20 | Day surgery (SDC) | payer MEDICAID ==
[~2020-07-10 10:20] MED LIST changes: -CEPH250T PO; -DOXY100C76 PO; +HYDR-4353 PO; +LIDOcaine 2% 5ml jelly ONE
[2020-07-10] MEDS ORDERED: LIDOcaine 2% 5ml jelly ONE (10:46)
== END 2020-07-10 11:54 | disposition home or self-care (01) ==
LOC: WOUND CARE 10:20
PROVIDERS: ATTEND Nurse Practitioner Family
DX: T81.89XD Other complications of procedures, not elsewhere classified, subsequent encounter (principal); L98.492 Non-pressure chronic ulcer of skin of other sites with fat layer exposed; R10.2 Pelvic and perineal pain; F17.210 Nicotine dependence, cigarettes, uncomplicated; Z79.899 Other long term (current) drug therapy; Z79.2 Long term (current) use of antibiotics; Y83.8 Other surgical procedures as the cause of abnormal reaction of the patient, or of later complication, without mention of misadventure at the time of the procedure
CPT/HCPCS: 97597; 97598

== ENCOUNTER 2020-07-13 11:00 | Day surgery (SDC) | payer MEDICAID ==
[~2020-07-13 11:00] MED LIST changes: -LIDOcaine 2% 5ml jelly ONE
[2020-07-13] MEDS ORDERED: LIDOcaine 2% 5ml jelly ONE ×2 (11:29)
== END 2020-07-13 12:07 | disposition home or self-care (01) ==
LOC: WOUND CARE 11:00
PROVIDERS: ATTEND Nurse Practitioner
DX: T81.89XD Other complications of procedures, not elsewhere classified, subsequent encounter (principal); L98.492 Non-pressure chronic ulcer of skin of other sites with fat layer exposed; R10.2 Pelvic and perineal pain; F17.210 Nicotine dependence, cigarettes, uncomplicated; Z79.899 Other long term (current) drug therapy; Z79.2 Long term (current) use of antibiotics; Y83.8 Other surgical procedures as the cause of abnormal reaction of the patient, or of later complication, without mention of misadventure at the time of the procedure
CPT/HCPCS: 97597; 97598

== ENCOUNTER 2020-07-17 13:24 | Day surgery (SDC) | payer MEDICAID ==
[2020-07-17] MEDS ORDERED: LIDOcaine 2% 5ml jelly ONE (14:41)
== END 2020-07-17 15:02 | disposition home or self-care (01) ==
LOC: WOUND CARE 13:24
PROVIDERS: ATTEND Nurse Practitioner
DX: T81.89XD Other complications of procedures, not elsewhere classified, subsequent encounter (principal); L98.492 Non-pressure chronic ulcer of skin of other sites with fat layer exposed; R10.2 Pelvic and perineal pain; I96 Gangrene, not elsewhere classified; F17.210 Nicotine dependence, cigarettes, uncomplicated; Z79.899 Other long term (current) drug therapy; Z79.2 Long term (current) use of antibiotics; Y83.8 Other surgical procedures as the cause of abnormal reaction of the patient, or of later complication, without mention of misadventure at the time of the procedure
CPT/HCPCS: 97597

== ENCOUNTER 2020-07-25 09:26 | Day surgery (SDC) | payer MEDICAID ==
[2020-07-25] MEDS ORDERED: LIDOcaine 2% 5ml jelly ONE (09:43)
== END 2020-07-25 10:02 | disposition home or self-care (01) ==
LOC: WOUND CARE 09:26
PROVIDERS: ATTEND Nurse Practitioner
DX: T81.89XD Other complications of procedures, not elsewhere classified, subsequent encounter (principal); L98.492 Non-pressure chronic ulcer of skin of other sites with fat layer exposed; R10.2 Pelvic and perineal pain; I96 Gangrene, not elsewhere classified; F17.210 Nicotine dependence, cigarettes, uncomplicated; Z79.899 Other long term (current) drug therapy; Z79.2 Long term (current) use of antibiotics; Y83.8 Other surgical procedures as the cause of abnormal reaction of the patient, or of later complication, without mention of misadventure at the time of the procedure
CPT/HCPCS: 97597

== ENCOUNTER 2020-07-31 09:15 | Day surgery (SDC) | payer MEDICAID ==
[2020-07-31] MEDS ORDERED: LIDOcaine 2% 5ml jelly ONE (09:40)
== END 2020-07-31 10:11 | disposition home or self-care (01) ==
LOC: WOUND CARE 09:15
PROVIDERS: ATTEND Nurse Practitioner Family
DX: T81.89XD Other complications of procedures, not elsewhere classified, subsequent encounter (principal); L98.492 Non-pressure chronic ulcer of skin of other sites with fat layer exposed; R10.2 Pelvic and perineal pain; I96 Gangrene, not elsewhere classified; F17.210 Nicotine dependence, cigarettes, uncomplicated; Z79.899 Other long term (current) drug therapy; Z79.2 Long term (current) use of antibiotics; Y83.8 Other surgical procedures as the cause of abnormal reaction of the patient, or of later complication, without mention of misadventure at the time of the procedure
CPT/HCPCS: 97597

== ENCOUNTER 2020-08-07 10:20 | Outpatient (CLI) | payer MEDICAID | END 2020-08-07 10:54 | disposition home or self-care (01) | LOC: WOUND CARE 10:20 | PROVIDERS: ATTEND Nurse Practitioner Family | DX: T81.89XD Other complications of procedures, not elsewhere classified, subsequent encounter (principal); L98.492 Non-pressure chronic ulcer of skin of other sites with fat layer exposed; R10.2 Pelvic and perineal pain; I96 Gangrene, not elsewhere classified; E87.6 Hypokalemia; F17.210 Nicotine dependence, cigarettes, uncomplicated; Z79.899 Other long term (current) drug therapy; Z79.2 Long term (current) use of antibiotics; Y83.8 Other surgical procedures as the cause of abnormal reaction of the patient, or of later complication, without mention of misadventure at the time of the procedure | CPT/HCPCS: G0463 ==

== ENCOUNTER 2021-10-25 00:46 | Emergency (ER) | payer MEDICAID ==
[~2021-10-25] VITALS: Ht 182.9 cm; Wt 65.9 kg
[~2021-10-25 00:46] MED LIST changes: +ACYC-129 PO; -ACYC-202 PO; +ALBU8.5H17 IH; -ALBU8.5H8 IH
[2021-10-25 01:20] VITALS: BP 142/13
--- NOTE | 2021-10-25 02:01 | NUR ---
ULTRASOUND PAGED AT [phone]
[2021-10-25 02:17] LABS: CLARITY,URINE CLEAR (Clear); COLOR,URINE YELLOW (Yellow); GLUCOSE, URINE NEGATIVE (Neg); KETONES,URINE NEGATIVE (Neg); LEUKOCYTE ESTERASE ,URINE NEGATIVE (Neg); NITRITES, URINE NEGATIVE (Neg); OCCULT BLOOD,URINE NEGATIVE (Neg); PH,URINE 5.5 (4.8-8.0); PROTEIN,URINE NEGATIVE (Neg); UROBILINOGEN,URINE 0.2 E.U/dL (0.2-1.0)
[2021-10-25 02:22] LABS: UA COLLECTION TYPE CLN CATCH MIDSTREAM
== END 2021-10-25 03:45 | disposition home or self-care (01) ==
LOC: ER 00:46
DX: S30.22XA Contusion of scrotum and testes, initial encounter (principal); N50.812 Left testicular pain; Z72.89 Other problems related to lifestyle; Z79.2 Long term (current) use of antibiotics; Z79.899 Other long term (current) drug therapy; W50.1XXA Accidental kick by another person, initial encounter; Y93.89 Activity, other specified; Y92.89 Other specified places as the place of occurrence of the external cause; Y99.8 Other external cause status
CPT/HCPCS: 76870; 81003; 99284

== ENCOUNTER 2021-10-30 12:35 | Emergency (ER) | payer MEDICAID ==
[~2021-10-30] VITALS: Ht 172.7 cm; Wt 72.7 kg
[2021-10-30 13:58] VITALS: BP 136/78
== END 2021-10-30 15:21 | disposition home or self-care (01) ==
LOC: ER 12:35
DX: I86.1 Scrotal varices (principal); N43.3 Hydrocele, unspecified; F17.210 Nicotine dependence, cigarettes, uncomplicated; Z88.5 Allergy status to narcotic agent; Z79.899 Other long term (current) drug therapy
CPT/HCPCS: 76870; 93976; 99284